=== PATIENT | female | born 1965 | race Caucasian/White ===

== ENCOUNTER 2021-11-11 14:08 | Emergency (ER) | payer BC, SELFPAY ==
[2021-11-11 14:15] VITALS: BP 114/86; PULSE 76; RESP 19; TEMP 37; O2SAT 100; BMI 22.8
--- NOTE | 2021-11-11 14:35 | HMH.EDUTC ---
[facility] [place] Disposition Clinical Impression: Rash Disposition: Home, Self-Care Condition on Discharge: Good Instructions: DI for Rash, Prednisone Additional Instructions: Start oral steriod tomorrow Over the counter calamine lotion may help Oatmeal bathes/soaks may help with itching and clearing of rash Follow up with your Family Doctor or Dermatology if no improvement or any worsening of symptoms Return if needed Straight to ER if any life threatening symptoms Prescriptions: Mupirocin [Bactroban 2% Ointment 22gm tube] 1 applicatio TP TID 10 Days #22 gm Transmission Status: Received by [facility] predniSONE [Prednisone 5mg Tab Dose-Pack] 5 mg PO UD DOSE PK 6 Days #21 tab Transmission Status: Received by [facility] Referrals: Provider,MD Vicente [Primary Care Provider] - As needed Kaylyn Shaw MD [Referring] - As needed Time of Disposition: 14:54 Medical Decision Making - [place] Inquiry Pt receiving controlled substance: No B[place] was queried for this patient: No Vital Signs: 11/11/21 14:15 11/11/21 14:54 Temperature 98.6 F 98.6 F Temperature Source Oral Pulse Rate 76 Pulse Rate [Left Brachial] 76 Respiratory Rate 19 19 Blood Pressure 114/86 Blood Pressure [Left Arm] 114/86 Blood Pressure Mean [Left Arm] 95 Blood Pressure Source [Left Arm] Automatic Cuff Blood Pressure Position [Left Arm] Sitting 02 Sat by Pulse Oximetry 100 Oxygen Delivery Method Room Air Orders (Tests/Meds): ED MEDICATIONS Discontinued Medications Generic Name Dose Route Start Last Admin Trade Name Freq PRN Reason Stop Dose Admin Methylprednisolone Sodium Succinate 125 mg 11/11/21 14:43 11/11/21 14:50 Methylprednisolone Sod Succ 125mg Vial IM 11/11/21 14:44 125 mg ONCE ONE Administration [facility] [place] HPI - General Stated complaint: rash Time Seen by Provider: 11/11/21 14:35 Mode of Arrival: Ambulatory Source of Information: Patient Limitations: No Limitations Description of Symptoms (Recalled from Triage Doc. by RN): PATIENT C/O RASH TO FACE X 2 DAYS HEENT Symptoms (Recalled from RN notes): No Resp Symptoms (Recalled from RN notes): No Skin Symptoms (Recalled from RN notes): Yes MS Symptoms (Recalled from RN notes): No Functional Status (Recalled from RN notes): WNL - History of Present Illness Provider Complaint: Patient states that rash started a couple weeks ago and would be here an there on her face after she cleared some weeds from her yard States that for the last couple of days it has started spreading on her face and feels like it is getting worse so she came in to get checked - Related Data Previous Rx's Medication Instructions Recorded Mupirocin [Bactroban 2% Ointment 1 applicatio TP TID 10 Days #22 gm 11/11/21 22gm tube] predniSONE [Prednisone 5mg Tab 5 mg PO UD DOSE PK 6 Days #21 tab 11/11/21 Dose-Pack] Allergies Allergy/AdvReac Type Severity Reaction Status Date / Time amoxicillin Allergy Verified 11/11/21 14:27 - Worker's Comp Is this a Worker's Comp case?: No [facility] History - Hepatitis A Screen Attestation statement:: This patient has been screened for Hepatitis A risk factors. I have reviewed the patient's past medical history: Yes - Social History Smoking Status: Current every day smoker Tobacco Type: cigarettes # Packs/Day (cigarettes): 1 Alcohol Intake: never Occupational Status: other ROS Obtained: Yes All systems reviewed & no additional complaints, Yes Systems reviewed as appropriate & no additional complaints - Constitutional Constitutional: Reports system reviewed and no additional complaints, except as docu - ENT Ears, Nose, Mouth, and Throat: Reports system reviewed and no additional complaints, except as docu - Cardiovascular Cardiovascular: Reports system reviewed and no additional complaints, except as docu - Respiratory Respiratory: Reports system reviewed and no additional complaints, except as d
[2021-11-11 14:54] VITALS: BP 114/86; PULSE 76; RESP 19; TEMP 37; O2SAT 100
== END 2021-11-11 15:05 | disposition home or self-care (01) ==
PROVIDERS: Emergency Provider Nurse Practitioner
DX: R21 Rash and other nonspecific skin eruption (principal); F17.210 Nicotine dependence, cigarettes, uncomplicated; Z79.52 Long term (current) use of systemic steroids; Z88.0 Allergy status to penicillin; Z88.1 Allergy status to other antibiotic agents; Z88.3 Allergy status to other anti-infective agents
CPT/HCPCS: 96372; 99284